=== PATIENT | male | born 1975 | race Caucasian/White ===

== ENCOUNTER 2024-10-24 17:02 | Emergency (ER) | payer SELFPAY ==
[2024-10-24 17:05] VITALS: BP 133/84
[2024-10-24 17:10] LABS: Glucose - Point of Care 49 mg/dl (70-99)
[2024-10-24 17:26] LABS: Glucose - Point of Care 63 mg/dl (70-99)
[2024-10-24 17:36] LABS: Hematocrit 44.3 % (39.0-52.0); Hemoglobin 14.9 g/dL (13.0-18.0); Mean Corp Hgb Conc. 33.6 g/dL (33.0-37.0); Mean Corpuscular Volume 83.6 fL (80.0-94.0); Nucleated Red Blood Cells % 0 % (-); Platelet Count 241 10^3/uL (130-400); Red Cell Dist. Width 14.6 % (11.5-14.5)
[2024-10-24 17:40] LABS: Glucose - Point of Care 75 mg/dl (70-99)
[2024-10-24 17:48] VITALS: BP 124/96
[2024-10-24 17:57] LABS: Urine Character Clear (Clear)
[2024-10-24 18:00] VITALS: BP 123/106
[2024-10-24 18:00] LABS: ALT (SGPT) 23 U/L (0-50); AST (SGOT) 31 U/L (17-59); Albumin 4.7 g/dl (3.5-5.0); Alkaline Phosphatase 50 U/L (38-126); Blood Urea Nitrogen 19 mg/dl (9-20); Calcium 9.4 mg/dl (8.4-10.2); Carbon Dioxide 28 mmol/L (22-30); Chloride 105 mmol/L (98-107); Glucose 41 mg/dl (70-99); Potassium 3.9 mmol/L (3.5-5.1); Sodium 140 mmol/L (135-145); Total Protein 7.4 g/dl (6.3-8.2); eGFR > 60.00
[2024-10-24 18:05] LABS: Urine Red Blood Cell 0-2 /HPF (0-2); Urine White Cell 0-2 /HPF (0-5)
[2024-10-24 18:11] LABS: Glucose - Point of Care 70 mg/dl (70-99)
[2024-10-24 18:31] LABS: Glucose - Point of Care 48 mg/dl (70-99)
[2024-10-24] MEDS: DEXTROSE 50% SYRINGE 12.5 GRAMS IV (18:31)
[2024-10-24 18:34] VITALS: BMI 35.6
[2024-10-24 18:48] LABS: Glucose - Point of Care 87 mg/dl (70-99)
[2024-10-24] MEDS: VALIUM INJECTION 5 MG IV (18:49)
[2024-10-24 19:04] VITALS: BP 91/52
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
[2024-10-24 19:17] LABS: Glucose - Point of Care 109 mg/dl (70-99)
[2024-10-24 20:18] LABS: Glucose - Point of Care 105 mg/dl (70-99)
[2024-10-24 21:02] LABS: Glucose - Point of Care 100 mg/dl (70-99)
[2024-10-24 21:25] VITALS: BP 114/84
[2024-10-24 22:12] LABS: Glucose - Point of Care 93 mg/dl (70-99)
[2024-10-24 22:43] VITALS: BP 115/64
== END 2024-10-24 23:00 | disposition home or self-care (01) ==
LOC: EMR 17:02
PROVIDERS: Nurse Practitioner; Student in an Organized Health Care Education/Training Program; EMERGENCY PHYSICIAN Emergency Medicine; FAMILY PHYSICIAN Family Medicine Sports Medicine
DX: E11.649 Type 2 diabetes mellitus with hypoglycemia without coma (principal); S30.1XXA Contusion of abdominal wall, initial encounter; S80.812A Abrasion, left lower leg, initial encounter; S30.811A Abrasion of abdominal wall, initial encounter; V49.9XXA Car occupant (driver) (passenger) injured in unspecified traffic accident, initial encounter; W22.11XA Striking against or struck by driver side automobile airbag, initial encounter; I25.10 Atherosclerotic heart disease of native coronary artery without angina pectoris; F17.200 Nicotine dependence, unspecified, uncomplicated; Z79.4 Long term (current) use of insulin
CPT/HCPCS: 99284; 96374; 96375; 70450; 71046; 74177; 80053; 81003; 81015; 82962; 85025; Q9967